=== PATIENT | female | born 1940 | race Caucasian/White ===

== ENCOUNTER 2018-10-27 06:38 | Emergency (ER) | payer MEDICARE ==
[2018-10-27] MEDS ORDERED: traMADol HCl 50 MG TAB ONE (06:49)
[2018-10-27 08:32] LABS: #Eosinphils 0.1 thou/uL (0.0-0.7); #Lymphocytes 0.8 thou/uL (1.20-3.40); #Monocytes 0.6 thou/uL (0.11-0.59); %Basophils 0.4 % (0.0-1.0); %Eosinophils 0.7 % (0.0-10.0); %Lymphocytes 7.8 % (21.0-51.0); %Monocytes 6.8 % (0.0-10.0); %Neutrophils 84.3 % (42.0-75.0); Hemoglobin 12.5 g/dL (12.0-16.0); Mean Corpuscular HGB CONC 33.1 g/dL (32.0-36.0); Mean Corpuscular Hemoglobin 31.4 pg (27.0-31.0); Mean Platelet Volume 7.3 fL (7.4-10.4); Platelet Count 229 thou/uL (130-400); Red Blood Cell (RBC) Count 3.99 mill/uL (4.20-5.40); White Blood Cell (WBC) Count 9.5 thou/uL (4.8-10.8)
[2018-10-27 08:52] LABS: ALT (SGPT) 14 U/L (8-55); AST (SGOT) 24 U/L (5-34); Albumin 3.6 g/dL (3.4-4.8); Alkaline Phosphatase 65 U/L (40-150); Anion Gap 14 mmol/L (10-20); BUN (Urea Nitrogen) 19 mg/dL (9.8-20.1); Bilirubin, Total 0.6 mg/dL (0.2-1.2); Calc. Creatinine Clearance 0 mL/min (70-130); Calcium 9.1 mg/dL (7.8-10.44); Carbon Dioxide 25 mmol/L (23-31); Chloride 90 mmol/L (98-107); Estimated GFR-MDRD 57; Globulin 2.5 g/dL (2.4-3.5); Glucose 100 mg/dL (83-110); Potassium 4.6 mmol/L (3.5-5.1); Protein, Total 6.1 g/dL (6.0-8.3); Sodium 124 mmol/L (136-145)
--- NOTE | 2018-10-27 09:24 | RAD ---
3 VIEWS RIGHT ANKLE: Date: 10/27/18 HISTORY: Trauma, fall. FINDINGS: The ankle mortise is congruent. There is slight irregularity involving the inferior aspect of the med ial malleolus, with tiny osseous densities seen, which may be related to injury of indeterminate age. However, there is no definite displaced fracture present. Posterior calcaneal enthesophyte is seen. There is mild subcutaneous soft tissue swelling about the ankle. IMPRESSION: 1. Irregularity of the inferior aspect of the medial malleolus suggesting injury of indeterminate ag e, but may be more remote in origin. No displaced fracture is seen. 2. Mild subcutaneous soft tissue swelling. POS: [facility]
--- NOTE | 2018-10-27 10:04 | RAD ---
4 VIEWS LEFT KNEE: Date: 10/27/18 HISTORY: Trauma. FINDINGS: There is tricompartment osteophytosis. There is narrowing of both the medial and lateral joint compar tments, greater medially, with subchondral sclerosis present medially. Prominent narrowing of the pat ellofemoral joint. No obvious fracture or dislocation seen. Generalized osteopenia is present. IMPRESSION: Osteopenia and osteoarthritis with narrowing of the medial and lateral joint compartments, as well as patellofemoral joint. POS: [facility]
--- NOTE | 2018-10-27 10:07 | RAD ---
4 VIEWS RIGHT KNEE: Date: 10/27/18 HISTORY: Trauma after fall. FINDINGS: There is diffuse osteopenia. There is tricompartment osteophytosis with narrowing of the medial and l ateral joint compartments, as well as patellofemoral joint. There is subchondral sclerosis involving the lateral joint compartment. There is a small suprapatellar joint effusion identified. There does a ppear to be a small, obliquely oriented fracture involving the proximal diaphysis of the fibula. How ever, this is only well seen on the frontal projection. IMPRESSION: 1. Findings suggestive of a subtle, nondisplaced fracture involving the proximal right fibula. This is only well seen on the AP view of the right knee. There is a questionable mild adjacent callus form ation, and this fracture may be more remote in origin. No additional fracture is seen, and there is n o dislocation. 2. Osteopenia and osteoarthritis. Prominent osteophytes are seen about the right knee. Above findings concerning suggested fracture involving the proximal right fibula were discussed with Dr. Santiago in the emergency department on 10/27/18 at 0856 hours. CODE CR. POS: [facility]
== END 2018-10-27 11:29 ==
LOC: ERS 06:38
DX: S82.831A Other fracture of upper and lower end of right fibula, initial encounter for closed fracture (principal); I10 Essential (primary) hypertension; F41.9 Anxiety disorder, unspecified; Z79.899 Other long term (current) drug therapy; W19.XXXA Unspecified fall, initial encounter
CPT/HCPCS: 36415; 80053; 85025

== ENCOUNTER 2018-11-29 15:45 | Emergency (ER) | payer MEDICARE ==
[2018-11-29 16:28] LABS: #Eosinphils 0.2 thou/uL (0.0-0.7); #Lymphocytes 1.4 thou/uL (1.20-3.40); #Monocytes 0.7 thou/uL (0.11-0.59); #Neutrophils 3.7 thou/uL (1.40-6.50); %Basophils 0.6 % (0.0-1.0); %Eosinophils 3.7 % (0.0-10.0); %Lymphocytes 22.9 % (21.0-51.0); %Monocytes 11.9 % (0.0-10.0); Mean Corpuscular HGB CONC 33.8 g/dL (32.0-36.0); Mean Corpuscular Hemoglobin 32.3 pg (27.0-31.0); Mean Corpuscular Volume 95.6 fL (78.0-98.0); Mean Platelet Volume 7.1 fL (7.4-10.4); Platelet Count 210 thou/uL (130-400); RBC Distribution Width 12.4 % (11.5-14.5); Red Blood Cell (RBC) Count 3.72 mill/uL (4.20-5.40); White Blood Cell (WBC) Count 6.1 thou/uL (4.8-10.8)
[2018-11-29 16:40] LABS: ALT (SGPT) 16 U/L (8-55); AST (SGOT) 23 U/L (5-34); Albumin 3.5 g/dL (3.4-4.8); Alkaline Phosphatase 72 U/L (40-150); Anion Gap 11 mmol/L (10-20); BUN (Urea Nitrogen) 12 mg/dL (9.8-20.1); Bilirubin, Total 0.5 mg/dL (0.2-1.2); CK (CPK) 117 U/L (29-168); Calc. Creatinine Clearance 0 mL/min (70-130); Calcium 8.9 mg/dL (7.8-10.44); Carbon Dioxide 25 mmol/L (23-31); Chloride 102 mmol/L (98-107); Estimated GFR-MDRD 66; Globulin 2.4 g/dL (2.4-3.5); Glucose 102 mg/dL (83-110); Lipase 10 U/L (8-78); Protein, Total 5.9 g/dL (6.0-8.3); Sodium 134 mmol/L (136-145)
--- NOTE | 2018-11-29 17:04 | CT ---
PELVIC CT NONCONTRAST 11/29/18 INDICATION: Followup pelvic pain. FINDINGS: Hip joints are maintained and alignment, bilaterally. No pathologic/posttraumatic diastasis of sacroi liac joints are symphysis pubis. No discrete fracture is visualized. Incidental note of prominent colonic diverticulosis. There is a fat containing periumbilical hernia, without inflammation. Scattered vascular disease is present. IMPRESSION: No discrete pelvic fracture. POS: [facility]
[2018-11-29] MEDS ORDERED: Acetaminophen/Codeine 30-300mg Tablet ONE (17:55)
--- NOTE | 2018-12-01 15:55 | EKG ---
Test Reason : Blood Pressure : / mmHG Vent. Rate : 070 BPM Atrial Rate : 070 BPM P-R Int : 140 ms QRS Dur : 128 ms QT Int : 424 ms P-R-T Axes : 060 054 049 degrees QTc Int : 457 ms Normal sinus rhythm Right bundle branch block Cannot rule out Inferior infarct , age undetermined Abnormal ECG Confirmed by CANDY JONES, AIDAN ([id number]), desk editor DANIEL VIDAL ([id number]) on 12/01/2018 3:54:04 PM Referred By: Confirmed By:AIDAN GUPTA MD
== END 2018-11-29 18:35 | disposition home or self-care (01) ==
LOC: ERS 15:45
DX: S39.012A Strain of muscle, fascia and tendon of lower back, initial encounter (principal); I10 Essential (primary) hypertension; F41.9 Anxiety disorder, unspecified; M19.90 Unspecified osteoarthritis, unspecified site; Z79.899 Other long term (current) drug therapy; W19.XXXA Unspecified fall, initial encounter
CPT/HCPCS: 36415; 72192; 80053; 82550; 83690; 83880; 84484; 85025; 93005

== ENCOUNTER 2018-12-07 19:50 | Observation (INO) | payer MEDICARE ==
[~2018-12-07 19:50] MED LIST: ISOVUE-370 76%-LOCM 1 ML ONE
--- NOTE | 2018-12-07 20:31 | RAD ---
FPortable chest: HISTORY: Chest pain COMPARISON: none FINDINGS: Patient is rotated which mildly distorts the chest. Small granuloma in the right midlung. Lung jones are clear. Heart and mediastinum appear unremarkable. Vascularity is normal. Visualized osseous structures unremarkable. IMPRESSION:No acute finding
[2018-12-07 20:36] LABS: #Lymphocytes 1.3 thou/uL (1.20-3.40); #Monocytes 0.6 thou/uL (0.11-0.59); #Neutrophils 6.3 thou/uL (1.40-6.50); %Basophils 0.5 % (0.0-1.0); %Eosinophils 0.3 % (0.0-10.0); %Lymphocytes 15.4 % (21.0-51.0); %Neutrophils 76.9 % (42.0-75.0); Hemoglobin 13.6 g/dL (12.0-16.0); Mean Corpuscular HGB CONC 33.5 g/dL (32.0-36.0); Mean Corpuscular Hemoglobin 31.8 pg (27.0-31.0); Mean Corpuscular Volume 94.8 fL (78.0-98.0); Mean Platelet Volume 7.6 fL (7.4-10.4); Platelet Count 255 thou/uL (130-400); RBC Distribution Width 12.6 % (11.5-14.5); Red Blood Cell (RBC) Count 4.27 mill/uL (4.20-5.40); White Blood Cell (WBC) Count 8.2 thou/uL (4.8-10.8)
[2018-12-07 20:58] LABS: ALT (SGPT) 18 U/L (8-55); AST (SGOT) 21 U/L (5-34); Albumin 4.1 g/dL (3.4-4.8); Alkaline Phosphatase 77 U/L (40-150); Anion Gap 12 mmol/L (10-20); BUN (Urea Nitrogen) 19 mg/dL (9.8-20.1); Bilirubin, Total 0.5 mg/dL (0.2-1.2); CK (CPK) 44 U/L (29-168); Calc. Creatinine Clearance 0 mL/min (70-130); Calcium 9.4 mg/dL (7.8-10.44); Carbon Dioxide 26 mmol/L (23-31); Chloride 96 mmol/L (98-107); Estimated GFR-MDRD 67; Globulin 2.6 g/dL (2.4-3.5); Glucose 104 mg/dL (83-110); Lipase 24 U/L (8-78); Potassium 4.4 mmol/L (3.5-5.1); Protein, Total 6.7 g/dL (6.0-8.3); Sodium 130 mmol/L (136-145)
[2018-12-07] MEDS ORDERED: Dexamethasone 10 MG/ML VIAL ONE (21:34)
[2018-12-07] MEDS ORDERED: diphenhydrAMINE 50 MG/ML VIAL ONE (21:34)
--- NOTE | 2018-12-07 22:39 | CT ---
CTA CHEST WITH CONTRAST: 12/07/18 Multiple axial tomograms obtained through chest following the angio protocol with multiplanar reconst ructions and 3D postprocessing. INDICATIONS: Chest pain. Shortness of breath. Pulmonary arteries show adequate opacification. There is no evidence of pulmonary embolus identified. The lungs show no evidence of infiltrate or effusion. There are chronic appearing lung parenchymal ch anges. Mediastinum unremarkable. Thoracic aorta unremarkable. No evidence of dissection. IMPRESSION: 1. No evidence of pulmonary embolus. 2. No acute lung process identified. POS: [facility]
[2018-12-07] MEDS ORDERED: Aspirin Chewable 81 MG TAB ONE (23:14)
[2018-12-08 00:01] LABS: Troponin I Less than 0.010 ng/mL (< 0.028)
[2018-12-08] MEDS ORDERED: Nitroglycerin 2% Ointment 1 INCH/1 GM Packet ONE (00:02)
[2018-12-08 01:12] LABS: Troponin I Less than 0.010 ng/mL (< 0.028)
[2018-12-08] MEDS ORDERED: Sodium Chloride 0.9% 1,000 ML IV SCH (04:00)
[2018-12-08 04:35] VITALS: BMI 42.3
[2018-12-08] MEDS ORDERED: Labetalol HCl 100 MG/20 ML VIAL SLOW IVP PRN (09:35)
[2018-12-08] MEDS ORDERED: Acetaminophen 325 MG TAB PO PRN (09:35)
[2018-12-08 10:02] LABS: Cardiac Risk 4.5 (Less than 4.5)
[2018-12-08] MEDS ORDERED: ADENOSINE 60 MG/20 ML VIAL ONE (11:18)
--- NOTE | 2018-12-08 11:52 | HP ---
PRIMARY CARE PHYSICIAN: Jv Brady MD CHIEF COMPLAINT: "I have a heavy feeling in my chest." HISTORY OF PRESENT ILLNESS: Ms. Edmond is a pleasant 78-year-old female, who has a history of hypertension as well as recently diagnosed with anxiety. She was in her usual state of health until yesterday around 8:30, she woke up with a heavy sensation in her chest. She said she felt like something was mashing on her chest and she could not breathe. She was just lying in bed when this happened. She called her nurse, and the nurse advised her to take her blood pressure. It was around 153 systolic, and she told her to take her blood pressure medications, which she did and then, she laid back down, but then later in the evening, she felt the same sensation about 5/6 in the evening, and this time, she informed her to go to the ER for evaluation. She also noted some pain at the top of her head and some numbness in the right side of her face. There was no nausea, no vomiting, but she did say she felt like she just could not get a good breath in and the symptoms were a bit severe. She was evaluated in the ER. She had a CT scan of the chest to rule out PE, which was negative, and she is being brought in for possible acute coronary syndrome. The patient says that her symptoms resembled acid reflux, but she says it did not get better after she belched a little bit. REVIEW OF SYSTEMS: All systems were reviewed and are negative, except for that mentioned in the history of present illness. PAST MEDICAL HISTORY: Significant for hypertension, anxiety, scoliosis, and osteoarthritis. PAST SURGICAL HISTORY: She has had a lumbar surgery x2 with a laminectomy, hysterectomy, and appendectomy. ALLERGIES: TO IODINATED CONTRAST AND SULFA. SOCIAL HISTORY: She is a nonsmoker and nondrinker. She is and lives alone. Her daughter lives close to her. She gets around in a motorized wheelchair. This is as a result of a recent fall she suffered. She would like to be a full code and her daughter, Libby Morin is her medical power of estate planning attorney. FAMILY HISTORY: Significant for heart disease in her father, but she says he was a heavy smoker. Mother had angina. CURRENT MEDICATIONS: Include, 1. Valsartan 150 mg p.o. daily. 2. Gas-X q.a.c. and at bedtime p.r.n. 3. Zoloft 25 mg daily. 4. Lorazepam 0.5 mg as needed. 5. Loratadine 10 mg daily. 6. Vitamin D3 1000 units daily. 7. Tylenol 500 mg twice a day as needed. PHYSICAL EXAMINATION: GENERAL: She is alert and oriented. She appears to be in no acute distress. She is well developed and well nourished. VITAL SIGNS: Blood pressure is 135/64, heart rate is 73, respiratory rate of 18, temperature is 97.7, and O2 saturation is 97% on room air. HEENT: Pupils are equal, round, and reactive. Extraocular muscles are intact. Her sclerae are anicteric. Throat, no erythema, no exudates. NECK: No adenopathy, but she did have bilateral bruits or a transmitted murmur. CARDIOVASCULAR: She had a normal S1, S2. No S3 or S4, but she did have a systolic murmur heard best in the aortic area with radiation to the carotids. PULMONARY: There is no wheezing, no rales, no rhonchi. ABDOMEN: Abdomen is obese, it is soft. She has some mild abdominal tenderness, but there is no rebound, no guarding, no organomegaly. EXTREMITIES: There is no edema. No clubbing or cyanosis. No joint crepitus. She does have severe hammertoe deformities. NEUROLOGIC: Her cranial nerves 2 through 12 are intact. Muscle strength is intact. SKIN AND INTEGUMENT: No skin changes. No rash. LABORATORY RESULTS: White blood cell count is 8.2, hemoglobin is 13.6, hematocrit is 40.5, and platelet count is 255. Sodium is 130, potassium is 4.4, chloride is 96, CO2 is 26, BUN of 19, creatinine is 0.82, glucose is 104. Troponin is less than 0.010. IMAGING STUDIES: EKG is sinus rhythm with no acute ST wave changes. The rate was 69 beats. It is by my reading. Chest x-ray, she had some mild cardiomegaly. She has rotated, but no ST wave changes. ASSESSMENT: This is a pleasant 78-year-old female, who presents to the emergency room with complaints of chest pressure. She has a history of hypertension and advanced age, which puts her at some moderate risk for coronary artery disease. We will therefore get a nuclear stress test as well as a lipid panel for risk stratification, and due to the murmur, get an echocardiogram. 1. For hypertension, it is noted that her blood pressure was extremely high when she arrived in the ER. This could have been related to anxiety, but if she had elevated blood pressure, this could have contributed to her symptoms. We will restart her home medications and monitor. 2. Generalized anxiety. The patient notes difficulty with anxiety and this too can be a possibility as other tests are negative. Job ID: [id number]
[2018-12-08 13:43] VITALS: TEMP 97.8
--- NOTE | 2018-12-08 14:25 | NM ---
MYOCARDIAL PERFUSION SCAN STRESS ONLY: HISTORY: Chest pain. TECHNIQUE/FINDINGS: Examination is performed using 30 mCi 99m-technetium sestamibi on the stress study. This shows a fair ly normal distribution of radiopharmaceutical without signs of ischemic change. WALL MOTION: There is symmetric contractility to the ventricle. LEFT VENTRICULAR EJECTION FRACTION: The calculated left ventricular ejection fraction is 80%. IMPRESSION: Unremarkable myocardial stress exam. POS: [facility]
[2018-12-08 15:30] VITALS: BP 139/65
--- NOTE | 2018-12-09 05:32 | DIS ---
DATE OF ADMISSION: 12/07/2018 DATE OF DISCHARGE: 12/08/2018 DISCHARGE DISPOSITION: Home. PRIMARY CARE PHYSICIAN: Dr. Jalen Brady. DISCHARGE DIAGNOSES: 1. Chest pain, probable noncardiac. 2. Hypertension. 3. Anxiety. 4. Osteoarthritis. 5. Scoliosis. DISCHARGE MEDICATIONS: Include: 1. Valsartan 160 mg daily. 2. Zoloft 25 mg daily. 3. Lorazepam 0.5 mg as needed. 4. Loratadine 10 mg daily. 5. Vitamin D3 1000 units daily. 6. Extra-strength Tylenol 500 mg twice daily as needed. PROCEDURES DONE DURING ADMISSION: The patient had a nuclear stress test, which was negative for any reversible ischemia. The patient also had a CT angiogram of the chest, which was negative for pulmonary embolism. No evidence of pneumonia. CODE STATUS: Full code. ALLERGIES: IODINATED CONTRAST AND SULFA. HOSPITAL COURSE: Ms. Edmond is a pleasant 78-year-old female who presented to the emergency room with complaints of chest pain. Her pain was atypical and happened at rest. However, due to risk factors for coronary artery disease, she was placed in observation and ruled out and a stress test was obtained. This was negative and an echocardiogram was also done; however, the results were not available at the time of discharge. This was done due to an audible murmur on exam and is considered nonurgent at this time and can be followed up by Dr. Brady in the outpatient setting. Therefore, the patient is discharged home and to have close followup with Dr. Jalen Brady. Job ID: [id number]
[2018-12-09] MEDS ORDERED: Enoxaparin Sodium 40 MG/0.4 ML SYRINGE SC SCH (09:00)
== END 2018-12-08 16:20 | disposition home or self-care (01) ==
LOC: ERS 19:50 → 2NO 22:45
PROVIDERS: ADMIT Hospitalist; ATTEND Hospitalist
DX: R07.89 Other chest pain (principal); I10 Essential (primary) hypertension; M19.90 Unspecified osteoarthritis, unspecified site; F41.1 Generalized anxiety disorder; M81.0 Age-related osteoporosis without current pathological fracture; Z79.899 Other long term (current) drug therapy; Z88.2 Allergy status to sulfonamides; Z91.041 Radiographic dye allergy status
CPT/HCPCS: 71045; 71275; 78452; 80053; 80061; 82550; 83690; 83880; 84484 ×3; 85025; 93005; 93017; 93306; 94760 ×2; 96374; 96375; 99285; A9500; G0378 ×2; 36415; J0153; J1100; J1200; Q9966

== ENCOUNTER 2020-01-26 15:17 | Inpatient (IN) | payer MEDICARE ==
[2020-01-26 15:55] LABS: Hemoglobin 11.4 g/dL (12.0-16.0); Mean Corpuscular HGB CONC 32.7 g/dL (32.0-36.0); Mean Corpuscular Hemoglobin 31.8 pg (27.0-31.0); Mean Corpuscular Volume 97.1 fL (78.0-98.0); Mean Platelet Volume 7.8 fL (7.4-10.4); Platelet Count 214 thou/uL (130-400); White Blood Cell (WBC) Count 20.7 thou/uL (4.8-10.8)
[2020-01-26 16:08] LABS: Band 16 % (5-11); Eosinophils 1 % (0-10); Lymphocytes 2 % (21-51); MDiff Complete? YES; Monocytes 5 % (0-10); Neutrophil 76 % (42-75); Platelet Morphology Comment Appears Adequate; RBC Morphology Normal
--- NOTE | 2020-01-26 16:17 | RAD ---
SINGLE VIEW OF THE CHEST: Comparison: 12-07-18 History: Nausea, low blood pressure. FINDINGS: Single view of the chest shows a normal sized cardiomediastinal silhouette. There is no evidence of c onsolidation, mass, or pleural effusion. The bones are unremarkable. IMPRESSION: No evidence of acute cardiopulmonary disease. POS: [facility]
[2020-01-26 16:33] LABS: ALT (SGPT) 13 U/L (8-55); AST (SGOT) 17 U/L (5-34); Albumin 3.5 g/dL (3.4-4.8); Alkaline Phosphatase 70 U/L (40-110); Anion Gap 15 mmol/L (10-20); Bilirubin, Total 0.7 mg/dL (0.2-1.2); Calc. Creatinine Clearance 0 mL/min (70-130); Calcium 8.2 mg/dL (7.8-10.44); Carbon Dioxide 24 mmol/L (23-31); Chloride 87 mmol/L (98-107); Estimated GFR-MDRD 39; Globulin 2.5 g/dL (2.4-3.5); Glucose 124 mg/dL (83-110); Lipase 4 U/L (8-78); Sodium 123 mmol/L (136-145)
[2020-01-26] MEDS ORDERED: Ondansetron PF 4 MG/2 ML Vial ONE (16:48)
[2020-01-26 16:57] LABS: Potassium 2.9 mmol/L (3.5-5.1)
--- NOTE | 2020-01-26 17:52 | CT ---
CT ABDOMEN AND PELVIS WITHOUT CONTRAST: Comparison: None History: Low blood pressure, abdominal pain, nausea and diarrhea. Technique: Multiple contiguous axial images were obtained in a CT of the abdomen and pelvis without c ontrast. Sagittal and coronal reformats were performed. FINDINGS: There are calcifications in the spleen from prior granulomatous disease. The liver, gallbladder, kidn eys, adrenal glands, and pancreas are unremarkable, although evaluation is limited without IV contras t. No free air, free fluid, or stranding changes are seen in the abdomen or pelvis. The patient is statu s post hysterectomy. Scattered diverticula are seen in the colon. The small bowel is normal in calibe r. No abdominal or pelvic lymphadenopathy are seen. Atherosclerotic calcifications are seen in the ao rta. Degenerative changes are seen in the spine. The abdominal wall soft tissues are unremarkable. There i s a calcified granuloma in the right middle lobe with scarring in the right middle lobe. IMPRESSION: 1. No evidence of acute intraabdominal/pelvic abnormality. 2. Diverticulosis. POS: [facility]
[2020-01-26] MEDS ORDERED: Potassium Chloride 20 MEQ TAB ONE (18:16)
[2020-01-26 19:26] LABS: Bacteria/HPF 4+ HPF (None Seen); Bilirubin Negative (Negative); Blood, Urine Trace (Negative); Clarity Extra Turbid (Clear); Glucose, Urine (Dipstick) Normal (Negative); Leukocyte 500 Leu/uL (Negative); Nitrite 1+ (Negative); Protein, Urine (Dipstick) 20 mg/dL (Neg-Trace); RBC/HPF 0-3 HPF (0-3); Renal Epithelial 0-3 HPF (None Seen); Urobilinogen Normal mg/dL (Less than 2); WBC/HPF Greater than 50 HPF (0-3)
--- NOTE | 2020-01-26 19:41 | PDOC.HHP ---
Hospitalist HPI - History of Present Illness Dizziness, weakness History of Present Illness: Patient is an 80 year old female with PMH HTN, arthritis, recent C diff infection who presents to ED for 2 days weakness, dizziness, low BP and altered mental status. Daughter main brought patient to ED and is main caregiver, patient developed weakness, dizziness, low BP with systolic in 80s as wel as malaise, nausea/vomiting. PCP was unavailable by phone. Patient reports difficulty supporting her weight due to legs being like Jello. No focal weakness or numbness, no dysuria or hematuria reported. In ED, labs concerning for new elevated Cr, low Na, low K, WBC was 20, UA positive for infectious markers. BPs low on arrival but improved with IVF in ED. CT a/p and CXR did not reveal acute findings. Patient given KCl, IVF, ceftriaxone, cultures drawn, patient to be admitted for further workup and treatment of above. Hospitalist ROS - Review of Systems Constitutional: reports: weakness, malaise. denies: fever, chills, sweats Eyes: denies: pain, vision change ENT: denies: ear pain, ear discharge, mouth swelling Respiratory: denies: cough, dry, shortness of breath Cardiovascular: denies: chest pain, palpitations, orthopnea Gastrointestinal: reports: nausea. denies: vomiting Genitourinary: denies: dysuria, frequency Musculoskeletal: denies: neck pain, shoulder pain Skin: denies: rash, lesions Neurological: denies: weakness, numbness Other: +dizziness +altered mental status Hospitalist History - Past Medical History Other Medical History: HTN, arthritis, recent C diff infection - Past Surgical History Other Surgical History: Surgical history of hysterectomy BACK SX, NECK SX. - Family History Family History: reports: no pertinent history - Social History Smoking Status: Never smoker Alcohol: reports: None Drugs: reports: none - Exam General Appearance: NAD, awake alert General - other findings: altered mental status, oriented x 2-3 Eye: PERRL, anicteric sclera ENT: normocephalic atraumatic, no oropharyngeal lesions, moist mucosa Neck: supple, no JVD Heart: RRR, no murmur, no gallops, no rubs Respiratory: CTAB, no wheezes, no rales Gastrointestinal: soft, non-tender, non-distended Extremities: no cyanosis, no clubbing, no edema Skin: normal turgor, no lesions, no rashes Neurological: cranial nerve grossly intact, normal sensation to touch, no weakness, no focal deficits, no new deficit Musculoskeletal: normal tone, normal strength, no muscle wasting Psychiatric: normal affect, normal behavior Psychiatric - other findings: altered mental status reduced memory but still oriented basically Hospitalist Results - Labs Result Diagrams: 01/26/20 15:32 01/26/20 15:32 Lab results: WBC 20.7 thou/uL (4.8-10.8) H 01/26/20 15:32 Hgb 11.4 g/dL (12.0-16.0) L 01/26/20 15:32 Hct 34.9 % (36.0-47.0) L 01/26/20 15:32 MCV 97.1 fL (78.0-98.0) 01/26/20 15:32 Plt Count 214 thou/uL (130-400) 01/26/20 15:32 Band Neuts % (Manual) 16 % (5-11) H 01/26/20 15:32 Sodium 123 mmol/L (136-145) L 01/26/20 15:32 Potassium 2.9 mmol/L (3.5-5.1) L* 01/26/20 15:32 Chloride 87 mmol/L (98-107) L 01/26/20 15:32 Carbon Dioxide 24 mmol/L (23-31) 01/26/20 15:32 BUN 25 mg/dL (9.8-20.1) H 01/26/20 15:32 Creatinine 1.30 mg/dL (0.6-1.1) H 01/26/20 15:32 Glucose 124 mg/dL (83-110) H 01/26/20 15:32 Lactic Acid 2.1 mmol/L (0.5-2.2) 01/26/20 16:59 Calcium 8.2 mg/dL (7.8-10.44) 01/26/20 15:32 Total Bilirubin 0.7 mg/dL (0.2-1.2) 01/26/20 15:32 AST 17 U/L (5-34) 01/26/20 15:32 ALT 13 U/L (8-55) 01/26/20 15:32 Alkaline Phosphatase 70 U/L (40-110) 01/26/20 15:32 Troponin I 0.019 ng/mL (< 0.028) 01/26/20 15:32 B-Natriuretic Peptide 189.6 pg/mL (0-100) H 01/26/20 15:32 Serum Total Protein 6.0 g/dL (6.0-8.3) 01/26/20 15:32 Albumin 3.5 g/dL (3.4-4.8) 01/26/20 15:32 Lipase 4 U/L (8-78) L 01/26/20 15:32 Urine Ketones Negative mg/dL (Negative) 01/26/20 19:03 Urine Blood Trace (Negative) A 01/26/20 19:03 Urine Nitrite 1+ (Negative) A 01/26/20 19:03 Ur Leukocyte Esterase 500 Darnell/uL (Negative) A 01/26/20 19:03 Urine RBC 0-3 HPF (0-3) 01/26/20 19:03 Urine WBC Greater than 50 HPF (0-3) A 01/26/20 19:03 Ur Squamous Epith Cells 7-10 HPF (0-3) A 01/26/20 19:03 Urine Bacteria 4+ HPF (None Seen) A 01/26/20 19:03 Additional comment: VITAL SIGNS Plush January 26, 2020 18:19 JAVAN Kc Tammy BP: 96/59 MAP: 76 Pulse: 82 Resp: 14 Pain: 0 O2 sat: 100 on (Room Air) Time: 01/26/2020 18:19. VITAL SIGNS Plush January 26, 2020 18:24 JAVAN Kc Tammy BP: 108/56 MAP: 69 Pulse: 81 Resp: 18 Pain: 0 O2 sat: 100 on (Room Air) Time: 01/26/2020 18:24. Hospitalist H&P A/P - Plan Plan: Patient is an 80 year old female with PMH HTN, arthritis, recent C diff infection who presents to ED for 2 days weakness, dizziness, low BP and altered mental status. # UTI w/ sepsis - admit to floor - ceftriaxone - follow culture results - IVF # hyponatremia - likely secondary to sepsis and hypovolemia, recheck in AM after IV hydration # metabolic encephalopathy - secondary to sepsis and UTI, treat as above # recent C diff infection - treated several weeks ago, having formed stool now, monitor stool character, probiotics # hypokalemia - presume due to reduced PO intake in setting of all above issues , trend and replete as needed # HTN - hold home meds, PRNs in chart # arthritis - PRN pain meds - restarted ibuprofen which is her chronic pain med and pepcid for gi ppx, has been several weeks since c diff treatment complete DAV - DAUGHTER [phone].
[2020-01-26] MEDS ORDERED: cefTRIAXone\\ROCEPHIN 1 GM VIAL ONE (20:09)
[2020-01-26] MEDS ORDERED: Promethazine HCl 12.5 MG in Sodium Chloride 0.9% 50 ML IVPB PRN (21:43)
[2020-01-26] MEDS ORDERED: hydrALAZINE 20 MG/ML VIAL SLOW IVP PRN (21:43)
[2020-01-26] MEDS ORDERED: Ondansetron PF 4 MG/2 ML Vial IVP PRN (21:43)
[2020-01-26] MEDS ORDERED: HYDROcodone/Acetaminophen 5/325 mg Tablet PO PRN (21:43)
[2020-01-26] MEDS ORDERED: Acetaminophen 325 MG TAB PO PRN (21:43)
[2020-01-26] MEDS ORDERED: cloNIDine 0.1 MG TAB PO PRN (21:43)
[2020-01-26] MEDS ORDERED: Morphine 2 MG/ML SYRINGE SLOW IVP PRN (21:43)
[2020-01-26] MEDS ORDERED: Labetalol HCl 100 MG/20 ML VIAL SLOW IVP PRN (21:43)
[2020-01-26] MEDS ORDERED: Sodium Chloride 0.9% 1,000 ML IV SCH (21:45)
[2020-01-26] MEDS ORDERED: Ibuprofen 200 MG TAB PO PRN (21:50)
[2020-01-26] MEDS ORDERED: Guaifenesin DM 100-10/5 ML UDCUP PO PRN (21:50)
[2020-01-26] MEDS ORDERED: Senokot S 8.6-50 MG TAB PO PRN (21:50)
[2020-01-26] MEDS ORDERED: Bisacodyl 5 MG TAB PO PRN (21:50)
[2020-01-26] MEDS ORDERED: Saccharomyces boulardii 250 MG CAP PO SCH (22:45)
[2020-01-26] MEDS ORDERED: Naproxen 500 MG TAB PO SCH (23:45)
[2020-01-26] MEDS: Lorazepam 0.5 MG TAB PO PRN (23:49)
[2020-01-26] MEDS: Sodium Chloride 0.9% 1,000 ML IV SCH (23:55)
[2020-01-27 00:38] VITALS: BMI 39.9
[2020-01-27 05:21] LABS: #Eosinphils 0.4 thou/uL (0.0-0.7); #Lymphocytes 1.4 thou/uL (1.20-3.40); #Neutrophils 10.7 thou/uL (1.40-6.50); %Basophils 0.1 % (0.0-1.0); %Eosinophils 2.8 % (0.0-10.0); %Lymphocytes 10.5 % (21.0-51.0); %Monocytes 7.3 % (0.0-10.0); %Neutrophils 79.3 % (42.0-75.0); Hemoglobin 9.6 g/dL (12.0-16.0); Mean Corpuscular HGB CONC 33.6 g/dL (32.0-36.0); Mean Corpuscular Hemoglobin 32.8 pg (27.0-31.0); Mean Corpuscular Volume 97.8 fL (78.0-98.0); Mean Platelet Volume 7.9 fL (7.4-10.4); Platelet Count 168 thou/uL (130-400); Red Blood Cell (RBC) Count 2.92 mill/uL (4.20-5.40); White Blood Cell (WBC) Count 13.5 thou/uL (4.8-10.8)
[2020-01-27 05:48] LABS: Anion Gap 10 mmol/L (10-20); Calc. Creatinine Clearance 73 mL/min (70-130); Calcium 7.7 mg/dL (7.8-10.44); Carbon Dioxide 24 mmol/L (23-31); Chloride 96 mmol/L (98-107); Estimated GFR-MDRD 56; Glucose 107 mg/dL (83-110); Magnesium 1.5 mg/dL (1.6-2.6); Sodium 127 mmol/L (136-145)
[2020-01-27] MEDS: Enoxaparin Sodium 30 MG/0.3 ML SYRINGE SC SCH (08:54)
[2020-01-27] MEDS ORDERED: Naproxen 500 MG TAB PO SCH (09:00)
[2020-01-27] MEDS ORDERED: Famotidine 20 MG TAB PO SCH ×2 (09:00)
[2020-01-27] MEDS ORDERED: Polyethylene Glycol 3350 17 GM Packet PO SCH (09:00)
[2020-01-27] MEDS ORDERED: Potassium Chloride 20 MEQ TAB PO SCH ×2 (09:30→15:00)
[2020-01-27] MEDS: Sodium Chloride 0.9% 1,000 ML IV SCH ×2 (10:00→17:55)
[2020-01-27] MEDS: Saccharomyces boulardii 250 MG CAP PO SCH (10:01)
[2020-01-27 14:05] LABS: #Eosinphils 0.5 thou/uL (0.0-0.7); #Lymphocytes 1.3 thou/uL (1.20-3.40); #Neutrophils 9.7 thou/uL (1.40-6.50); %Basophils 0.3 % (0.0-1.0); %Eosinophils 3.7 % (0.0-10.0); %Lymphocytes 10.4 % (21.0-51.0); %Monocytes 7.7 % (0.0-10.0); %Neutrophils 77.9 % (42.0-75.0); Hemoglobin 9.9 g/dL (12.0-16.0); Mean Corpuscular HGB CONC 32.7 g/dL (32.0-36.0); Mean Corpuscular Hemoglobin 32.3 pg (27.0-31.0); Mean Corpuscular Volume 98.7 fL (78.0-98.0); Mean Platelet Volume 7.9 fL (7.4-10.4); Platelet Count 192 thou/uL (130-400); RBC Distribution Width 12.1 % (11.5-14.5); Red Blood Cell (RBC) Count 3.07 mill/uL (4.20-5.40); White Blood Cell (WBC) Count 12.5 thou/uL (4.8-10.8)
[2020-01-27] MEDS: Vancomycin HCl 25 MG/ML Oral PO SCH (17:53)
[2020-01-27] MEDS: cefTRIAXone\\ROCEPHIN 1 GM in Sodium Chloride 0.9% 100 ML IVPB SCH (21:56)
[2020-01-27] MEDS: Pantoprazole 40 MG VIAL IVP SCH (21:57)
[2020-01-28] MEDS: Vancomycin HCl 25 MG/ML Oral PO SCH ×4 (00:32→18:14)
[2020-01-28] MEDS: Lorazepam 0.5 MG TAB PO PRN (00:34)
[2020-01-28] MEDS: Sodium Chloride 0.9% 1,000 ML IV SCH ×2 (06:31→11:52)
[2020-01-28 07:16] LABS: #Basophils 0.1 thou/uL (0.0-0.2); #Eosinphils 0.6 thou/uL (0.0-0.7); #Lymphocytes 1.5 thou/uL (1.20-3.40); #Monocytes 0.8 thou/uL (0.11-0.59); #Neutrophils 5.4 thou/uL (1.40-6.50); %Basophils 0.9 % (0.0-1.0); %Eosinophils 7.4 % (0.0-10.0); %Lymphocytes 17.6 % (21.0-51.0); %Monocytes 9.1 % (0.0-10.0); Hemoglobin 9.8 g/dL (12.0-16.0); Mean Corpuscular HGB CONC 33.8 g/dL (32.0-36.0); Mean Corpuscular Hemoglobin 33.7 pg (27.0-31.0); Mean Corpuscular Volume 99.8 fL (78.0-98.0); Mean Platelet Volume 7.9 fL (7.4-10.4); Platelet Count 170 thou/uL (130-400); RBC Distribution Width 12.1 % (11.5-14.5); White Blood Cell (WBC) Count 8.3 thou/uL (4.8-10.8)
[2020-01-28 07:38] LABS: Anion Gap 10 mmol/L (10-20); BUN (Urea Nitrogen) 14 mg/dL (9.8-20.1); Calc. Creatinine Clearance 86 mL/min (70-130); Calcium 7.5 mg/dL (7.8-10.44); Carbon Dioxide 21 mmol/L (23-31); Chloride 100 mmol/L (98-107); Estimated GFR-MDRD 67; Glucose 85 mg/dL (83-110); Magnesium 1.7 mg/dL (1.6-2.6); Potassium 4.2 mmol/L (3.5-5.1); Sodium 127 mmol/L (136-145)
[2020-01-28] MEDS: Enoxaparin Sodium 30 MG/0.3 ML SYRINGE SC SCH (09:28)
[2020-01-28] MEDS: Pantoprazole 40 MG VIAL IVP SCH ×2 (09:30→22:21)
[2020-01-28] MEDS: Saccharomyces boulardii 250 MG CAP PO SCH (09:30)
--- NOTE | 2020-01-28 15:34 | PDOC.HOSPP ---
- Subjective Encounter Date: 01/27/20 Encounter Time: 11:15 Subjective: pt up in bed no complains. - Objective Vital Signs & Weight: Vital Signs (12 hours) Temp Pulse Resp BP Pulse Ox 01/28/20 11:37 97.7 F 73 18 114/52 L 97 01/28/20 10:42 97.5 F L 72 18 108/66 98 Weight Weight 218 lb 8 oz I&O: 01/27/20 01/28/20 01/29/20 06:59 06:59 06:59 Intake Total 1300 3250 Output Total 3 Balance 1300 3247 Result Diagrams: 01/28/20 07:07 01/28/20 07:07 Hospitalist ROS - Review of Systems Cardiovascular: denies: chest pain, palpitations, orthopnea, paroxysmal noc. dyspnea, edema, light headedness, other Gastrointestinal: denies: nausea, vomiting, abdominal pain, diarrhea, constipation, melena, hematochezia, other Genitourinary: denies: dysuria, frequency, incontinence, hematuria, retention, other - Medication Medications: Active Medications Generic Name Dose Route Start Last Admin Trade Name Freq PRN Reason Stop Dose Admin Enoxaparin Sodium 30 mg 01/27/20 09:00 01/28/20 09:28 Lovenox SC 30 mg 0900 REX Administration Ceftriaxone Sodium 1 gm/ 100 mls @ 200 mls/hr 01/27/20 20:00 01/27/20 21:56 Sodium Chloride IVPB 02/01/20 20:29 100 mls Q24HR REX Administration Sodium Chloride 1,000 mls @ 100 mls/hr 01/26/20 22:00 01/28/20 11:52 Normal Saline 0.9% IV Not Given .Q10H REX Lorazepam 0.5 mg 01/26/20 23:27 01/28/20 00:34 Ativan PO 0.5 mg BID PRN Administration Anxiety Pantoprazole Sodium 40 mg 01/27/20 21:00 01/28/20 09:30 Protonix IVP 40 mg Q12HR REX Administration Saccharomyces Boulardii 250 mg 01/27/20 09:00 01/28/20 09:30 Florastor PO 250 mg DAILY REX Administration Sertraline HCl 50 mg 01/27/20 09:00 01/28/20 09:31 Zoloft PO 50 mg DAILY REX Administration Sodium Chloride 10 ml 01/27/20 09:00 01/28/20 09:31 Flush - Normal Saline IVF 10 ml Q12HR REX Administration Vancomycin HCl 125 mg 01/27/20 18:00 01/28/20 11:51 First Vancomycin PO 125 mg Q6HR REX Administration - Exam Neck: negative: supple, symmetric, no JVD, no thyromegaly, no lymphadenopathy, no carotid bruit, JVD Heart: negative: RRR, no murmur, no gallops, no rubs, normal peripheral pulses, irregular, diminshed peripheral pulses, murmur present, II/IV, III/IV Respiratory: negative: CTAB, no wheezes, no rales, no ronchi, normal chest expansion, no tachypnea, normal percussion, rales, rhonchi, tachypneic, wheezes Gastrointestinal: negative: soft, non-tender, non-distended, normal bowel sounds , no palpable masses, no hepatomegaly, no splenomegaly, no bruit, no guarding, no rigidity, tender to palpation, distended, diminished bowl sounds, voluntary guarding Hosp A/P (1) Diarrhea Code(s): R19.7 - DIARRHEA, UNSPECIFIED Status: Acute (2) Sepsis Code(s): A41.9 - SEPSIS, UNSPECIFIED ORGANISM Status: Acute (3) UTI (urinary tract infection) Status: Acute (4) Leukocytosis Code(s): D72.829 - ELEVATED WHITE BLOOD CELL COUNT, UNSPECIFIED Status: Acute (5) Anemia Code(s): D64.9 - ANEMIA, UNSPECIFIED Status: Acute - Plan will start pt on ppi, will also start her on oral vanco since pt is having diarrhea. she was cdiff positive. last month but toxin neg. she was hypotensive and anemic will hold her naproxen and consult gi.
--- NOTE | 2020-01-28 16:01 | PDOC.HOSPP ---
- Subjective Encounter Date: 01/28/20 Encounter Time: 13:00 Subjective: pt up in bed in no complains - Objective Vital Signs & Weight: Vital Signs (12 hours) Temp Pulse Resp BP Pulse Ox 01/28/20 11:37 97.7 F 73 18 114/52 L 97 01/28/20 10:42 97.5 F L 72 18 108/66 98 Weight Weight 218 lb 8 oz I&O: 01/27/20 01/28/20 01/29/20 06:59 06:59 06:59 Intake Total 1300 3250 Output Total 3 Balance 1300 3247 Result Diagrams: 01/28/20 07:07 01/28/20 07:07 Hospitalist ROS - Review of Systems Cardiovascular: denies: chest pain, palpitations, orthopnea, paroxysmal noc. dyspnea, edema, light headedness, other Gastrointestinal: denies: nausea, vomiting, abdominal pain, diarrhea, constipation, melena, hematochezia, other Genitourinary: denies: dysuria, frequency, incontinence, hematuria, retention, other - Medication Medications: Active Medications Generic Name Dose Route Start Last Admin Trade Name Freq PRN Reason Stop Dose Admin Enoxaparin Sodium 30 mg 01/27/20 09:00 01/28/20 09:28 Lovenox SC 30 mg 0900 REX Administration Ceftriaxone Sodium 1 gm/ 100 mls @ 200 mls/hr 01/27/20 20:00 01/27/20 21:56 Sodium Chloride IVPB 02/01/20 20:29 100 mls Q24HR REX Administration Sodium Chloride 1,000 mls @ 100 mls/hr 01/26/20 22:00 01/28/20 11:52 Normal Saline 0.9% IV Not Given .Q10H REX Lorazepam 0.5 mg 01/26/20 23:27 01/28/20 00:34 Ativan PO 0.5 mg BID PRN Administration Anxiety Pantoprazole Sodium 40 mg 01/27/20 21:00 01/28/20 09:30 Protonix IVP 40 mg Q12HR REX Administration Saccharomyces Boulardii 250 mg 01/27/20 09:00 01/28/20 09:30 Florastor PO 250 mg DAILY REX Administration Sertraline HCl 50 mg 01/27/20 09:00 01/28/20 09:31 Zoloft PO 50 mg DAILY REX Administration Sodium Chloride 10 ml 01/27/20 09:00 01/28/20 09:31 Flush - Normal Saline IVF 10 ml Q12HR REX Administration Vancomycin HCl 125 mg 01/27/20 18:00 01/28/20 11:51 First Vancomycin PO 125 mg Q6HR REX Administration - Exam Neck: negative: supple, symmetric, no JVD, no thyromegaly, no lymphadenopathy, no carotid bruit, JVD Heart: negative: RRR, no murmur, no gallops, no rubs, normal peripheral pulses, irregular, diminshed peripheral pulses, murmur present, II/IV, III/IV Respiratory: negative: CTAB, no wheezes, no rales, no ronchi, normal chest expansion, no tachypnea, normal percussion, rales, rhonchi, tachypneic, wheezes Gastrointestinal: negative: soft, non-tender, non-distended, normal bowel sounds , no palpable masses, no hepatomegaly, no splenomegaly, no bruit, no guarding, no rigidity, tender to palpation, distended, diminished bowl sounds, voluntary guarding Hosp A/P (1) Diarrhea Code(s): R19.7 - DIARRHEA, UNSPECIFIED Status: Acute (2) Sepsis Code(s): A41.9 - SEPSIS, UNSPECIFIED ORGANISM Status: Acute (3) UTI (urinary tract infection) Status: Acute (4) Leukocytosis Code(s): D72.829 - ELEVATED WHITE BLOOD CELL COUNT, UNSPECIFIED Status: Acute (5) Anemia Code(s): D64.9 - ANEMIA, UNSPECIFIED Status: Acute (6) C. difficile diarrhea Code(s): A04.72 - ENTEROCOLITIS D/T CLOSTRIDIUM DIFFICILE, NOT SPCF RECUR Status: Acute - Plan will start pt on ppi, will also start her on oral vanco since pt is having diarrhea. she was cdiff positive. last month but toxin neg. she was hypotensive and anemic will hold her naproxen and consult gi. 01/27 per gi no intervention will continue ppi, oral vanco for cdiff. will monitor hh.
--- NOTE | 2020-01-28 21:08 | CON ---
DATE OF CONSULTATION: 01/28/2020 REASON FOR CONSULTATION: Anemia and chronic NSAID use. HISTORY OF PRESENT ILLNESS: Ms. Edmond is an 80-year-old female, who lives at home. She has multiple family members who help take care of her. I have gotten the history from talking with her primary physician, who consulted me as well as the patient and her daughter, Lynne Joshi , who is her durable power of assistant field hockey coach. Ms. Edmond apparently was not feeling well over the weekend. She talked to one of her daughters, who is taking care of her and asked to check her blood pressure and it was low. She had been not having much of an appetite and had a couple of loose stools that day. In the emergency room, she was found to be hypotensive with some bacteria in the urine and decision was made to admit her. Cultures eventually showed E coli. In talking with the patient, she had a C diff infection back in December. She had a positive antigen negative toxin on 12/30, it is not clear if she had some other testing before that. Her daughter notes that she was treated and was off antibiotics for about 2 weeks with formed stools before. She had a couple of loose stools again over the weekend. She never had any dysuria, frequency, or urgency. She was eating fairly well, but using a very light diet. She had no fever or chills. As far as the history of NSAID, she has had no history of melena, vomiting, hematemesis, never had ulcer. She has never had upper or lower endoscopies, the daughter states. Today, Ms. Edmond is feeling a little bit better. She is a bit tired and started on antibiotics. She was started empirically on vancomycin as it seems the hospital has made a rule that we can check C diff within 30 days. In any event, the patient states she has just had a few loose stools. She has had none since admission. She denies abdominal pain, nausea, or vomiting. She denies prior history of ulcers. PAST MEDICAL HISTORY: Hypertension, scoliosis, arthritis, obesity. PAST SURGICAL HISTORY: Hysterectomy, back surgery, neck surgery. SOCIAL HISTORY: The patient lives at home. She has multiple family members who take care of her. She does not smoke or drink or use drugs. ALLERGIES: INCLUDE CONTRAST MEDIA, SULFA DRUGS. MEDICATIONS: At home; 1. Sertraline. 2. Valsartan. 3. Hydrochlorothiazide. 4. Lorazepam. 5. Loratadine. 6. Amlodipine. 7. Naproxen. Medications here include; 1. DuoNeb. 2. Rocephin. 3. Lovenox. 4. Catapres p.r.n. 5. Hydralazine p.r.n. 6. [place] p.r.n. 7. Ativan p.r.n. 8. Morphine p.r.n. 9. Zofran p.r.n. 10. Protonix 40 mg IV q.12 hours. 11. Phenergan. 12. Saccharomyces boulardii. 13. Vancomycin oral 125 p.o. q.6 hours. 14. Normal saline at 100. REVIEW OF SYSTEMS: She denies any fever, chills, or abdominal pain at this time. On talking with the nurse, she has had one stool which has been brown to green, no melena. PHYSICAL EXAMINATION: VITAL SIGNS: Temperature here, since admission she has been afebrile, 97.7, pulse 73, blood pressure 114/52, 108/66 at 10 this morning, 119/75 yesterday. When she came on the , she was running in the high 80s to low 90s. GENERAL: She is resting in bed. She is pleasant. She is alert, oriented to person, place, time. She is a bit overweight. HEENT: Oropharynx, no lesions. NECK: Supple. No adenopathy. LUNGS: Clear. HEART: Regular rate and rhythm without clicks or murmurs. ABDOMEN: Soft and nontender. There is no palpable organomegaly. EXTREMITIES: No clubbing, cyanosis, or edema. RECTAL: Deferred as she just had a stool and the nurse notes it was brown. It was heme-positive. LABORATORY DATA: White count was 20.7 on admission. It had been 8.2 on 12/07. Her hemoglobin was 11.4, now her hemoglobin is 9.8, it was 9 yesterday, 9.6 the day before that. White count is down to 8.3, platelet count is 178,000. A CAT scan of abdomen and pelvis without any contrast showed no overt abnormalities. ASSESSMENT: This is an 80-year-old female, who was admitted to the hospital with leukocytosis and hypotension. She has had blood cultures, which were negative. She did have a urine that was positive for E coli. It is unclear if this was contaminant, but probably not, that is being treated and she is improving. She had a history of C difficile toxin negative antigen positive stool on 12/31/2019. She was treated with 2 weeks of vancomycin by her primary physician. As she had 2 loose stools here, she was placed back on treatment. It really does not seem to me that she has C. difficile and I am not sure why they keep treated with vancomycin microbiology. We will have to go ahead and run a C diff. If toxin antigen and fecal white blood cells are negative, I would discontinue the vancomycin and treat with a probiotic. With regard to her hemoglobin, she has had waxing and waning hemoglobins over the last year, hemoglobin is usually in the 11 range, occasionally 12 or 13. Presently, this admission had been 9.8 to 11.4. She has no overt hemorrhage. She does have risk factors for ulcer and that she takes NSAIDs. After talking with the patient and her family, specifically her daughter who is durable power of assistant field hockey coach, they were little bit reluctant to embark on invasive procedures unless absolutely necessary and this time, she is not showing any signs of bleeding, I do not think it is absolutely necessary. They do understand the fact that we could miss underlying malignancies or significant lesions in light of her age and no prior colorectal cancer screening, but again with her size and lack of mobility and age as well as comorbidities that would rather be on the less invasive side at this time, which is very reasonable. If she develop signs of acute bleeding or worsening, then we can re-evaluate that. For now, then we will go ahead and just treat with PPI and avoid NSAIDs. We will follow along with you. Job ID: [id number]
[2020-01-28] MEDS: cefTRIAXone\\ROCEPHIN 1 GM in Sodium Chloride 0.9% 100 ML IVPB SCH (22:21)
[2020-01-29] MEDS: Sodium Chloride 0.9% 1,000 ML IV SCH ×2 (00:30→09:29)
[2020-01-29] MEDS: Vancomycin HCl 25 MG/ML Oral PO SCH ×4 (01:38→17:34)
[2020-01-29] MEDS: Lorazepam 0.5 MG TAB PO PRN ×2 (01:39→21:10)
[2020-01-29 06:37] LABS: #Basophils 0.1 thou/uL (0.0-0.2); #Eosinphils 0.4 thou/uL (0.0-0.7); #Lymphocytes 1.1 thou/uL (1.20-3.40); #Monocytes 0.6 thou/uL (0.11-0.59); #Neutrophils 3.4 thou/uL (1.40-6.50); %Lymphocytes 19.7 % (21.0-51.0); %Monocytes 9.9 % (0.0-10.0); %Neutrophils 61.4 % (42.0-75.0); Hemoglobin 9.6 g/dL (12.0-16.0); Mean Corpuscular HGB CONC 33.2 g/dL (32.0-36.0); Mean Corpuscular Hemoglobin 33.1 pg (27.0-31.0); Mean Corpuscular Volume 99.8 fL (78.0-98.0); Mean Platelet Volume 7.8 fL (7.4-10.4); Platelet Count 197 thou/uL (130-400); RBC Distribution Width 12.1 % (11.5-14.5); Red Blood Cell (RBC) Count 2.89 mill/uL (4.20-5.40); White Blood Cell (WBC) Count 5.6 thou/uL (4.8-10.8)
[2020-01-29 07:02] LABS: Anion Gap 11 mmol/L (10-20); BUN (Urea Nitrogen) 14 mg/dL (9.8-20.1); Calc. Creatinine Clearance 91 mL/min (70-130); Calcium 7.5 mg/dL (7.8-10.44); Carbon Dioxide 21 mmol/L (23-31); Chloride 102 mmol/L (98-107); Estimated GFR-MDRD 72; Glucose 82 mg/dL (83-110); Iron Binding Capacity, Total 139 mcg/dL (265-497); Magnesium 1.6 mg/dL (1.6-2.6); Potassium 4.2 mmol/L (3.5-5.1); Sodium 130 mmol/L (136-145)
[2020-01-29 07:24] LABS: Ferritin 196.93 ng/mL (10-291)
[2020-01-29] MEDS: Saccharomyces boulardii 250 MG CAP PO SCH (08:26)
[2020-01-29] MEDS: Enoxaparin Sodium 30 MG/0.3 ML SYRINGE SC SCH (08:27)
[2020-01-29] MEDS: Pantoprazole 40 MG VIAL IVP SCH (08:28)
--- NOTE | 2020-01-29 13:22 | PDOC.HOSPP ---
- Subjective Encounter Date: 01/29/20 Encounter Time: 10:30 Subjective: pt up in bed feels well no complains. - Objective Vital Signs & Weight: Vital Signs (12 hours) Temp Pulse Resp BP BP Pulse Ox 01/29/20 11:25 97.6 F 71 18 111/73 96 01/29/20 08:24 97.7 F 77 18 125/79 97 Weight Weight 218 lb 8 oz I&O: 01/28/20 01/29/20 01/30/20 06:59 06:59 06:59 Intake Total 3250 2840 Output Total 3 Balance 3247 2840 Result Diagrams: 01/29/20 05:47 01/29/20 05:47 Hospitalist ROS - Review of Systems Cardiovascular: denies: chest pain, palpitations, orthopnea, paroxysmal noc. dyspnea, edema, light headedness, other Gastrointestinal: denies: nausea, vomiting, abdominal pain, diarrhea, constipation, melena, hematochezia, other Genitourinary: denies: dysuria, frequency, incontinence, hematuria, retention, other - Medication Medications: Active Medications Generic Name Dose Route Start Last Admin Trade Name Freq PRN Reason Stop Dose Admin Enoxaparin Sodium 30 mg 01/27/20 09:00 01/29/20 08:27 Lovenox SC 30 mg 0900 REX Administration Ceftriaxone Sodium 1 gm/ 100 mls @ 200 mls/hr 01/27/20 20:00 01/28/20 22:21 Sodium Chloride IVPB 02/01/20 20:29 100 mls Q24HR REX Administration Lorazepam 0.5 mg 01/26/20 23:27 01/29/20 01:39 Ativan PO 0.5 mg BID PRN Administration Anxiety Saccharomyces Boulardii 250 mg 01/27/20 09:00 01/29/20 08:26 Florastor PO 250 mg DAILY REX Administration Sertraline HCl 50 mg 01/27/20 09:00 01/29/20 08:28 Zoloft PO 50 mg DAILY REX Administration Sodium Chloride 10 ml 01/27/20 09:00 01/29/20 08:36 Flush - Normal Saline IVF Not Given Q12HR REX Vancomycin HCl 125 mg 01/27/20 18:00 01/29/20 11:47 First Vancomycin PO 125 mg Q6HR REX Administration - Exam Neck: negative: supple, symmetric, no JVD, no thyromegaly, no lymphadenopathy, no carotid bruit, JVD Heart: negative: RRR, no murmur, no gallops, no rubs, normal peripheral pulses, irregular, diminshed peripheral pulses, murmur present, II/IV, III/IV Respiratory: negative: CTAB, no wheezes, no rales, no ronchi, normal chest expansion, no tachypnea, normal percussion, rales, rhonchi, tachypneic, wheezes Gastrointestinal: negative: soft, non-tender, non-distended, normal bowel sounds , no palpable masses, no hepatomegaly, no splenomegaly, no bruit, no guarding, no rigidity, tender to palpation, distended, diminished bowl sounds, voluntary guarding Hosp A/P (1) Diarrhea Code(s): R19.7 - DIARRHEA, UNSPECIFIED Status: Acute (2) Sepsis Code(s): A41.9 - SEPSIS, UNSPECIFIED ORGANISM Status: Acute (3) UTI (urinary tract infection) Status: Acute (4) Leukocytosis Code(s): D72.829 - ELEVATED WHITE BLOOD CELL COUNT, UNSPECIFIED Status: Acute (5) Anemia Code(s): D64.9 - ANEMIA, UNSPECIFIED Status: Acute (6) C. difficile diarrhea Code(s): A04.72 - ENTEROCOLITIS D/T CLOSTRIDIUM DIFFICILE, NOT SPCF RECUR Status: Acute - Plan will start pt on ppi, will also start her on oral vanco since pt is having diarrhea. she was cdiff positive. last month but toxin neg. she was hypotensive and anemic will hold her naproxen and consult gi. 01/27 per gi no intervention will continue ppi, oral vanco for cdiff. will monitor hh. 01/28 pt up in bed feels well no complains. will continue abx for now. will continue oral vanco. spoke with her daughter possible discharge in am.
--- NOTE | 2020-01-29 13:51 | PRG ---
DATE OF SERVICE: 01/29/2020 REASON FOR CONSULTATION: Anemia, Clostridium difficile colitis. SUBJECTIVE: Since being placed on antibiotic therapy for Clostridium difficile, the patient has had approximately 2 semi-solid to solid bowel movements over the last 24 hours with no episodes of hematochezia or melena. She also states that her abdominal pain has improved when compared to admission as well. She has been able to tolerate a diet without difficulty. Currently, she denies any nausea, vomiting, fevers, chills, GI bleeding, abdominal pain, dysphagia, or odynophagia. OBJECTIVE: VITAL SIGNS: Temperature 97.6, pulse 71, blood pressure 111/73, respiratory rate 18, and saturating 96% on room air. GENERAL: The patient was lying in bed, in no acute distress. Alert and oriented x4. CARDIOVASCULAR: Regular rate and rhythm. RESPIRATORY: Clear to auscultation bilaterally. ABDOMEN: Normoactive bowel sounds. Soft and nondistended. Mild tenderness to palpation in the right lower quadrant. EXTREMITIES: No cyanosis, clubbing, or edema. LABORATORY DATA: CBC with a white blood cell count of 5.6, hemoglobin 9.6, hematocrit 28.8, and platelets 197. Chemistry with a sodium of 130, potassium 4.2, chloride 102, CO2 of 21, BUN 14, creatinine 0.77, and glucose 82. Vitamin B12 of 173 and folate 4.7. IMAGING DATA: No current GI imaging is available for review. ASSESSMENT AND PLAN: The patient is an 80-year-old female with past medical history of hypertension, scoliosis, arthritis, and morbid obesity, presenting with urinary tract infection, macrocytic anemia, and Clostridium difficile colitis. Clostridium difficile colitis: The patient was admitted to the hospital initially with complaints of general malaise and hypotension. Shortly after admission, she was noted to have both a urinary tract infection with cultures growing E. coli in addition to Clostridium difficile on infectious stool studies. She was appropriately placed on oral vancomycin and over the last 24 hours has had solidification of her stools when compared to admission. Currently, she is responding well to conservative management with oral vancomycin and would recommend treatment for approximately 14 days. RECOMMENDATIONS; 1. Would continue the patient on oral vancomycin 125 mg every 6 hours. 2. Continue to monitor the patient clinically for solidification of her stools, indicating response to treatment. 3. Could continue probiotics as part of adjunctive therapy for Clostridium difficile colitis. 4. No endoscopic therapy or colonoscopy is indicated at this time given active infection and increased risk of perforation with intervention. Macrocytic anemia: The patient was noted to have a mild decrease in her H and H when compared to her baseline, but upon review of her labs during this admission, it appears to have a macrocytic component to it rather than microcytic. Labs obtained during this admission showed a low B12 and folate level, which could further contribute to this macrocytic anemia. She denies any episodes of hematemesis, melena, or hematochezia making overt gastrointestinal bleeding or gastrointestinal bleeding source unlikely. Recommendations; 1. Would supplement/replace both Devi acid and B12 in light of her macrocytic anemia. 2. Would continue to trend her H and H and transfuse as necessary to maintain an H and H of 7/21. 3. Continue to monitor clinically for signs of active gastrointestinal bleeding. 4. We would have the patient follow up in the GI Clinic in 3 to 4 weeks after supplementation with B12 and folate and if she continues to have a decreased H and H at that time, we would then consider endoscopic evaluation. We will sign off at this time. Please call with any questions. Job ID: [id number]
--- NOTE | 2020-01-29 16:17 | EKG ---
Test Reason : Blood Pressure : / mmHG Vent. Rate : 076 BPM Atrial Rate : 076 BPM P-R Int : 134 ms QRS Dur : 100 ms QT Int : 440 ms P-R-T Axes : 037 017 037 degrees QTc Int : 495 ms Normal sinus rhythm Low voltage QRS Cannot rule out Inferior infarct , age undetermined Abnormal ECG Confirmed by KEATON ELLIS DO ([id number]), film and video editor DANIEL VIDAL ([id number]) on 01/29/2020 4:16:51 PM Referred By: Confirmed By:KEATON ELLIS DO
[2020-01-29 20:20] VITALS: TEMP 98.3
[2020-01-29] MEDS: cefTRIAXone\\ROCEPHIN 1 GM in Sodium Chloride 0.9% 100 ML IVPB SCH (21:11)
[2020-01-30] MEDS: Vancomycin HCl 25 MG/ML Oral PO SCH ×3 (00:45→12:15)
[2020-01-30 06:53] LABS: #Eosinphils 0.4 thou/uL (0.0-0.7); #Lymphocytes 1.2 thou/uL (1.20-3.40); #Monocytes 0.7 thou/uL (0.11-0.59); #Neutrophils 3.5 thou/uL (1.40-6.50); %Basophils 0.7 % (0.0-1.0); %Eosinophils 7.6 % (0.0-10.0); %Lymphocytes 20.2 % (21.0-51.0); %Monocytes 11.6 % (0.0-10.0); %Neutrophils 59.9 % (42.0-75.0); Hemoglobin 9.9 g/dL (12.0-16.0); Mean Corpuscular HGB CONC 33.9 g/dL (32.0-36.0); Mean Corpuscular Hemoglobin 33.5 pg (27.0-31.0); Mean Corpuscular Volume 98.8 fL (78.0-98.0); Mean Platelet Volume 7.6 fL (7.4-10.4); Platelet Count 209 thou/uL (130-400); RBC Distribution Width 12.2 % (11.5-14.5); Red Blood Cell (RBC) Count 2.96 mill/uL (4.20-5.40); White Blood Cell (WBC) Count 5.8 thou/uL (4.8-10.8)
[2020-01-30 07:13] LABS: Anion Gap 9 mmol/L (10-20); BUN (Urea Nitrogen) 12 mg/dL (9.8-20.1); Calc. Creatinine Clearance 92 mL/min (70-130); Calcium 7.8 mg/dL (7.8-10.44); Carbon Dioxide 24 mmol/L (23-31); Chloride 103 mmol/L (98-107); Estimated GFR-MDRD 73; Glucose 82 mg/dL (83-110); Magnesium 1.5 mg/dL (1.6-2.6); Potassium 4.1 mmol/L (3.5-5.1); Sodium 132 mmol/L (136-145)
[2020-01-30 07:43] VITALS: BP 136/79
[2020-01-30] MEDS: Saccharomyces boulardii 250 MG CAP PO SCH (07:59)
[2020-01-30] MEDS: Enoxaparin Sodium 30 MG/0.3 ML SYRINGE SC SCH (07:59)
[2020-01-30] MEDS ORDERED: Folic Acid 1 MG TAB PO SCH (09:00)
[2020-01-30] MEDS ORDERED: Cyanocobalamin (Vitamin B-12) 1,000 MCG TAB PO SCH ×2 (09:00)
[2020-01-30] MEDS ORDERED: Magnesium Sulfate 3 GM, Admixture Fee 1 EACH in Sodium Chloride 0.9% 100 ML IVPB SCH (09:30)
--- NOTE | 2020-01-31 01:43 | DIS ---
DATE OF ADMISSION: 01/26/2020 DATE OF DISCHARGE: 01/30/2020 DISCHARGE DIAGNOSES: As of the followin. Diarrhea. 2. Sepsis, resolved. 3. Urinary tract infection. 4. Obesity. 5. Leukocytosis, resolved. 6. Anemia. 7. Low vitamin B12 level and folate level. 8. New onset C. difficile diarrhea. HOSPITAL COURSE: The patient is an 80-year-old female who initially presented to the hospital on 01/25 with dizziness and weakness. At this time, patient was found to have a leukocytosis of 20. Urine was concerned for possible infectious etiology. However, the patient started having loose stools. Clostridium difficile was checked and her test was positive for toxin and antigen. She was already started on medications prior to that. She was noted to have a low H and H from her prior. The patient has been taking naproxen and stopped it. We got GI to come and see the patient, however, family declined any EGD and her H and H remained stable. We will put on Protonix. Given her UTI, she has had multiple UTIs. Her urine culture indicated E. coli. She received 5 days of antibiotics. I do not think I am going to treat this any further. She also had some squamous epithelial cells. I believe most of the reason she came in was for the C. difficile. She will be discharged back home. I spoke with the daughter, updated the daughter. The daughter stated she did not want any jail facility. She wanted her mother to come back home. I will discharge her back home. HOME MEDICATIONS: As of the following: She is going to be on a probiotic one p.o. daily, vitamin B12 at 1000 p.o. daily, folate one daily, pantoprazole 40 mg daily, vancomycin 125 q.6 hours, simethicone 125 mg as needed, valsartan 150 mg daily, sertraline 50 mg daily, fenofibrate 180 mg daily, lorazepam 0.5 twice a day, amlodipine 5 mg p.o. daily. PHYSICAL EXAMINATION: VITAL SIGNS: Temperature 98.3, 75, 19, 95% on room air, 136/79. GENERAL: She is awake, alert, and oriented x3. Does not appear in distress. CV: S1, S2 present. No murmurs, rubs, or gallops. ABDOMEN: Soft, nontender. Bowel sounds are present x2. Job ID: [id number]
--- NOTE | 2020-01-31 23:26 | PQF ---
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 Clinical indicators are provided on the bottom of this form for your review Can you please further clarify if metabolic encephalopathy is ruled in or ruled out? Metabolic encephalopathy [ ] Ruled in diagnosis [ ] Continue to treat [ ] Resolved [ ] Ruled out diagnosis [ ] Cannot rule out diagnosis [ ] Other diagnosis [ ] Unable to determine In addition, please specify: Present on Admission (POA): [ ] Yes [ ] No [ ] Unable to determine For continuity of documentation, please document condition throughout progress notes and discharge summary. Thank You. CLINICAL INDICATORS - SIGNS / SYMPTOMS / LABS H and P pg.1- presents to ED for 2 days weakness, dizziness, low BP and altered mental status H and P pg.2- + dizziness, + altered mental status H and P pg.4- VS: BP 96/59, pulse 82, RR 14, H and P pg.5- metabolic encephalopathy 2/2 sepsis and UTI DS pg.1- Sepsis resolved RISK FACTORS UTI with sepsis- H and P pg.5 recent C diff infection- H and P pg.5 Hypokalemia- H and P pg.5 HTN- H and P pg.5 80 years old- H and P pg.1 Anemia- DS pg.1 TREATMENTS Electrocardiogram 01/25 IV Fluids- MAR Rocephin 1gm IV- MAR Vancomycin 125mg PO_ MAR (This form is maintained as a part of the permanent medical record) 2014 [id number] All Rights Reserved Rich MASON
[2020-02-06 14:50] LABS: BUN (Urea Nitrogen) 23 mg/dL (9.8-20.1)
[2020-02-06 14:51] LABS: BUN (Urea Nitrogen) 20 mg/dL (9.8-20.1)
== END 2020-01-30 15:29 | disposition home or self-care (01) | DRG 872 ==
LOC: ERS 15:17 → T4-A 21:14
PROVIDERS: ADMIT Internal Medicine; ATTEND Internal Medicine
DX: A41.51 Sepsis due to Escherichia coli [E. coli] (principal); N39.0 Urinary tract infection, site not specified; E87.1 Hypo-osmolality and hyponatremia; A04.71 Enterocolitis due to Clostridium difficile, recurrent; Z68.41 Body mass index [BMI] 40.0-44.9, adult; N17.9 Acute kidney failure, unspecified; I10 Essential (primary) hypertension; M19.90 Unspecified osteoarthritis, unspecified site; E87.6 Hypokalemia; E66.01 Morbid (severe) obesity due to excess calories; D64.9 Anemia, unspecified; E53.8 Deficiency of other specified B group vitamins; F41.9 Anxiety disorder, unspecified; M41.9 Scoliosis, unspecified; Z88.2 Allergy status to sulfonamides; Z90.710 Acquired absence of both cervix and uterus; Z91.041 Radiographic dye allergy status; Z79.899 Other long term (current) drug therapy
CPT/HCPCS: 36415; 36416; 51701; 71045; 74176; 80048; 80053; 81003; 81015; 82274; 82607; 82728; 82746; 83550; 83605; 83630; 83690; 83735; 83880; 84484; 85025; 86850; 86900; 86901; 87040; 87077; 87086; 87186; 87324; 87449; 93005; 96361; 96365; C9113; J0696; J1650; J2405; J3475; J3490

== ENCOUNTER 2021-06-23 11:00 | Outpatient (CLI) | payer MEDICARE | END 2021-06-23 11:01 | disposition home or self-care (01) | PROVIDERS: ATTEND Nurse Practitioner Family | DX: M41.9 Scoliosis, unspecified (principal) ==